=== PATIENT | male | born 1990 | race Caucasian/White ===

== ENCOUNTER 2019-02-03 23:57 | Emergency (ER) | payer SELFPAY ==
[~2019-02-03] VITALS: Ht 180.3 cm; Wt 55.0 kg
[~2019-02-03 23:57] MED LIST: AMOXIL500 MG OR; FLEXERIL5 MG PO; LORTAB 5 OR; MOTRIN600 MG/TAB PO; NAPROSYN500 MG OR; NAPROSYN500 MG PO; NO CURRENT MEDS; PERCOCET 5/325M1 TAB PO; ZPAK PO
[2019-02-04 00:52] LABS: HEMATOCRIT 47.2 % (39.0-50.0); HEMOGLOBIN 16.3 g/dl (14.0-18.0); IMMATURE GRANULOCYTES 0.5 % (0.0-5.0); MEAN CELL VOLUME 92.4 fL CALC (80.0-100.0); MEAN CORPUSCULAR HGB 31.9 pG CALC (26.0-32.0); MEAN CORPUSCULAR HGB CONC 34.5 g/L CALC (32.0-36.0); NEUT# 4.32 thou/uL (1.82-7.42); RED BLOOD COUNT 5.11 mill/uL (4.70-6.10); RED CELL DISTRI WIDTH 12.1 % (11.5-15.5)
[2019-02-04 00:54] LABS: ALKALINE PHOSPHATASE 96 u/l (38-126); ANION GAP 17 (6-22 (CALC)); BILIRUBIN, TOTAL 0.4 mg/dL (0.0-1.4); BUN 8 mg/dL (9-20); BUN/CREATININE RATIO 11 (12-20 (CALC)); CARBON DIOXIDE 25 mmol/l (22-30); CHLORIDE 102 mmol/l (95-108); CREATININE 0.7 mg/dL (0.7-1.3); GFR > 60 ML/MIN (>=60 (CALC)); GFR FOR AFR.AMER. > 60 ML/MIN (>=60 (CALC)); POTASSIUM 3.7 mmol/l (3.5-5.1); SGOT/AST 27 u/l (17-59); SODIUM 140 mmol/l (137-146); TOTAL PROTEIN 8.6 g/dL (6.3-8.2)
[2019-02-04 01:04] LABS: D-DIMER 0.32 mg/L (0.19-0.60); PROTHROMBIN TIME 10.7 SECONDS (9.0-12.5)
[2019-02-04 01:07] LABS: MYOGLOBIN 21 ng/mL (0 - 121)
[2019-02-04 02:20] VITALS: BP 118/76
== END 2019-02-04 02:30 | disposition home or self-care (01) | DRG 313 ==
LOC: ED 23:57
PROVIDERS: Family Medicine
DX: R07.89 Other chest pain (principal)